=== PATIENT | male | born 1955 | race Caucasian/White ===

== ENCOUNTER 2024-01-27 01:42 | Day surgery (SDC) | payer MEDICARE, SELFPAY ==
[2024-01-14 14:04] VITALS: BMI 32.3
[2024-01-27 08:18] VITALS: BP 158/88; PULSE 105; RESP 20; TEMP 35.8; O2SAT 100; BMI 32.8
--- NOTE | 2024-01-27 08:30 | SUR.PREOP ---
Patient stated they ate a turkey wrap at 1200 (01/26/2024), Dr. Singh was notified and will continue with procedure
[2024-01-27] MEDS: LACTATED RINGERS 1,000 ML 150 ML IV CONT (08:40)
--- NOTE | 2024-01-27 09:09 | PM.IMHP ---
H&P: HPI History of Present Illness Date/Time: 01/27/24 09:09 Chief Complaint: Dysphagia - anemia. Narrative: The patient has been complaining of intermittent dysphagia for several years, especially with solid foods. On occasion he has to take water to help food bolus passed to the stomach. he had an endoscopy, ( no report available) in 2020, showing some irritation . He was on a PPI but it was discontinued. In addition, he was found to have anemia and a colonoscopy was suggested as well for investigation. Unfortunately, there are no reports or physician notes in his his current chart. Review of Systems Review of Systems: All systems reviewed & are unremarkable except as noted in HPI and below PMFSH Social History Social History Smoking packs per day: 2 Smoking cigarettes per day: 40.0 Smoking status: Former smoker Tobacco type: cigarettes Alcohol intake: former Drinks per week: 12 Living arrangements: with family Spiritual care concerns: No Meds Home Medications and Allergies Home Medications Medication Instructions Recorded Confirmed Type allopurinol 100 mg tablet 200 mg PO DAILY 01/14/24 01/27/24 History calcitriol 0.25 mcg capsule 0.25 mcg PO DAILY 01/14/24 01/27/24 History ergocalciferol (vitamin D2) 50,000 50,000 unit PO WEEKLY 01/14/24 01/27/24 History unit tablet levothyroxine 25 mcg tablet 25 mcg PO DAILY 01/14/24 01/27/24 History Allergies Allergy/AdvReac Type Severity Reaction Status Date / Time Penicillins Allergy Unknown Verified 01/27/24 08:23 Vital Signs Vital Signs - 24 hr 01/27/24 08:18 Temperature 96.5 F L Pulse Rate 105 H Respiratory Rate 20 Blood Pressure 158/88 H Pulse Oximetry 100 Oxygen Delivery Room Air Assessment and Plan Assessment and plan (1) Anemia: Code(s): D64.9 - Anemia, unspecified Status: Acute Assessment and Plan: The patient is deemed a good candidate for the procedures. If a Schatzki ring is found, will proceed with dilatation. Will also take esophageal bx to r/o EoE. . Consent signed. Will proceed. (2) Dysphagia: Code(s): R13.10 - Dysphagia, unspecified Status: Acute
--- NOTE | 2024-01-27 09:17 | WPDANESEPPF ---
Anes - Initial Pre Proc Eval Procedure: Operation Date: 01/27/24 09:30 Proposed Procedures p Esophagogastroduodenoscopy & Colonoscopy - Brian Singh MD Date/Time: 01/27/24 09:17 Surgeon: Brian Singh MD Pre Op Diagnosis: anemia Patient Data Age: 68 Gender: M Height: 1.85 m Weight: 112.9 kg Last Vital Signs Temp 35.8 C L 01/27/24 08:18 Pulse 105 H 01/27/24 08:18 Resp 20 01/27/24 08:18 BP 158/88 H 01/27/24 08:18 Pulse Ox 100 01/27/24 08:18 O2 Del Method Room Air 01/27/24 08:18 Allergies Allergy/AdvReac Type Severity Reaction Status Date / Time Penicillins Allergy Unknown Verified 01/27/24 08:23 Home Medications Medication Instructions Recorded Confirmed Type allopurinol 100 mg tablet 200 mg PO DAILY 01/14/24 01/27/24 History calcitriol 0.25 mcg capsule 0.25 mcg PO DAILY 01/14/24 01/27/24 History ergocalciferol (vitamin D2) 50,000 50,000 unit PO WEEKLY 01/14/24 01/27/24 History unit tablet levothyroxine 25 mcg tablet 25 mcg PO DAILY 01/14/24 01/27/24 History Patient hx anesthesia problems: none Family hx anesthesia problems: none Results Review: All pre-operative results and documents have been reviewed as part of the pre-operative evaluation. [facility] Past Medical History Medical History (Updated 01/27/24 @ 09:18 by Angel Lees MD) Hypothyroidism Obesity Seizure recent in cardiologists office, negative CT and EEG Social History Social History Smoking packs per day: 2 Smoking cigarettes per day: 40.0 Smoking status: Former smoker Tobacco type: cigarettes Alcohol intake: former Drinks per week: 12 Living arrangements: with family Spiritual care concerns: No Anes - Eval Final PreProcedure Day of Procedure 01/27/24 09:17 Patient weight: obese Heart: regular rate and rhythm Lungs: clear to auscultation Airway: Mallampati scale class II Neurological: alert and oriented Last oral intake: >/= 8 hours ASA classification: III Emergent: no Anesthetic plan: proceed Anesthesia type and monitoring: general GIVS and standard monitoring Results Review: All pre-operative results and documents have been reviewed as part of the pre-operative evaluation. Informed Consent: The patient's anesthetic plan and its attendant risks and benefits were discussed with the patient/family/POA. Questions were solicited and answers provided to the satisfaction of the patient/family/POA.
[2024-01-27] MEDS: BENZOCAINE (*SP) 60 ML SPRAY CAN (HURRICAINE) 1 SPRAY MUCOUS MEM (09:22)
--- NOTE | 2024-01-27 09:42 | SUR.OPER ---
EGD END 936 COLON START 947
[2024-01-27 10:25] VITALS: BP 124/78; PULSE 73; RESP 14; O2SAT 98
[2024-01-27 10:35] VITALS: BP 150/87; PULSE 79; RESP 21; O2SAT 100
[2024-01-27 10:45] VITALS: BP 152/91; PULSE 74; RESP 20; O2SAT 100
== END 2024-01-27 11:07 | disposition home or self-care (01) ==
PROVIDERS: PCP Family Medicine; Referring Provider Nurse Practitioner; Visit Provider Internal Medicine Gastroenterology
PROC: 0DJ08ZZ Inspection of Upper Intestinal Tract, Via Natural or Artificial Opening Endoscopic (ICD-10-PCS; CPT 43235; principal; 2024-01-27 09:30)
DX: D64.9 Anemia, unspecified (principal); D12.3 Benign neoplasm of transverse colon; D12.8 Benign neoplasm of rectum; K62.1 Rectal polyp; K64.8 Other hemorrhoids; K21.00 Gastro-esophageal reflux disease with esophagitis, without bleeding; K44.9 Diaphragmatic hernia without obstruction or gangrene; K29.51 Unspecified chronic gastritis with bleeding; K29.80 Duodenitis without bleeding; R13.10 Dysphagia, unspecified; Z87.891 Personal history of nicotine dependence; E03.9 Hypothyroidism, unspecified; E66.9 Obesity, unspecified; Z68.32 Body mass index [BMI] 32.0-32.9, adult
CPT/HCPCS: 45385; 43239; 88305; J2003; J2704; J7120